=== PATIENT | male | born 1995 | race Caucasian/White ===

== ENCOUNTER 2023-02-26 18:41 | Emergency (ER) | payer MEDICAID ==
[~2023-02-26] VITALS: Ht 185.4 cm; Wt 113.0 kg
[2023-02-26 18:48] VITALS: BP 102/65
[2023-02-26] MEDS ORDERED: ERYTHROMYCIN BASE 0.5% OPHTH OINT 3.5GM LEFTEYE ONE (21:30)
[2023-02-26] MEDS ORDERED: FLUORESCEIN SODIUM 1MG/STRIP LEFTEYE ONE (21:30)
[2023-02-26] MEDS ORDERED: TETRACAINE 0.5% OPHTH DROPS 4ML LEFTEYE ONE (21:45)
[2023-02-26] MEDS ORDERED: TETANUS, DIPHTHERIA, PERTUSSIS VAC/PF 0.5ML (>10YR OLD) IM ONE (22:30)
[2023-02-26] MEDS ORDERED: ERYT1OIN6 EACHEYE (22:37)
[2023-02-26 22:50] VITALS: PULSE 68; RESP 18; TEMP 98.9
== END 2023-02-26 22:50 | disposition home or self-care (01) ==
LOC: ER 18:41
DX: S05.32XA Ocular laceration without prolapse or loss of intraocular tissue, left eye, initial encounter (principal); X58.XXXA Exposure to other specified factors, initial encounter; Y93.89 Activity, other specified; Y92.89 Other specified places as the place of occurrence of the external cause; Y99.8 Other external cause status
CPT/HCPCS: 70480; 90471; 90715; 99285; Z7610